=== PATIENT | male | born 1990 | race Hispanic/Latino ===

== ENCOUNTER 2020-09-12 13:48 | Emergency (ER) | payer SELFPAY ==
[2020-09-12] MEDS ORDERED: Morphine 4 MG/ML VIAL ONE (14:32)
[2020-09-12] MEDS ORDERED: Ketorolac Tromethamine 30 MG/ML VIAL ONE (14:32)
[2020-09-12] MEDS ORDERED: Ondansetron PF 4 MG/2 ML Vial ONE (14:32)
[2020-09-12] MEDS ORDERED: Boostrix 0.5 ML (Tdap) VIAL ONE (14:32)
[2020-09-12] MEDS ORDERED: Bacitracin 1 PK ONE (15:35)
== END 2020-09-12 16:08 | disposition home or self-care (01) ==
LOC: ERS 13:48
DX: T23.251A Burn of second degree of right palm, initial encounter (principal); X17.XXXA Contact with hot engines, machinery and tools, initial encounter; Y99.0 Civilian activity done for income or pay; Z23 Encounter for immunization
CPT/HCPCS: 16020; 90471; 90715; 96374; 96375; J1885; J2270; J2405

== ENCOUNTER 2020-12-10 23:16 | Emergency (ER) | payer SELFPAY ==
[2020-12-10] MEDS ORDERED: Ketorolac Tromethamine 30 MG/ML VIAL ONE (23:38)
== END 2020-12-11 00:05 | disposition home or self-care (01) ==
LOC: ERS 23:16
DX: M77.9 Enthesopathy, unspecified (principal)
CPT/HCPCS: 96372; J1885